=== PATIENT | female | born 1930 | race Caucasian/White ===

== ENCOUNTER 2017-12-10 17:03 | Emergency (ER) | payer OTHER ==
[~2017-12-10] VITALS: Ht 149.9 cm; Wt 56.7 kg
[2017-12-10] MEDS ORDERED: ASPIR 8181 MG (17:25)
[2017-12-10] MEDS ORDERED: ARICEPT5 MG (17:25)
[2017-12-10] MEDS ORDERED: PRISTIQ25 MG (17:25)
[2017-12-10] MEDS ORDERED: ARICEPT23 MG (17:29)
== END 2017-12-10 19:37 | disposition home or self-care (01) ==
LOC: ER 17:03
DX: S32.592A Other specified fracture of left pubis, initial encounter for closed fracture (principal); S20.222A Contusion of left back wall of thorax, initial encounter; S20.221A Contusion of right back wall of thorax, initial encounter; S30.0XXA Contusion of lower back and pelvis, initial encounter; M47.894 Other spondylosis, thoracic region; W18.09XA Striking against other object with subsequent fall, initial encounter; Y93.89 Activity, other specified; Y92.018 Other place in single-family (private) house as the place of occurrence of the external cause; Y99.8 Other external cause status